=== PATIENT | male | born 1935 | race Caucasian/White ===

== ENCOUNTER 2022-10-09 15:53 | Emergency (ER) | payer MEDICARE, BC ==
[~2022-10-09] VITALS: Ht 172.7 cm; Wt 85.6 kg
[2022-10-09 15:57] VITALS: BP 158/92; PULSE 76; RESP 16; TEMP 98; O2SAT 100
--- NOTE | 2022-10-09 16:28 | NUR ---
PT PRESENTS TO THE ER FOR MECHANICAL FALL, PT DENIES HEAD PAIN. PT DENIES LOC, OR BLOOD THINNERS. PT REPORTS 0/10 PAIN.
== END 2022-10-09 17:30 | disposition home or self-care (01) ==
LOC: ER 15:55
DX: S01.81XA Laceration without foreign body of other part of head, initial encounter (principal); W19.XXXA Unspecified fall, initial encounter; Y93.89 Activity, other specified; Y92.89 Other specified places as the place of occurrence of the external cause; Y99.8 Other external cause status
CPT/HCPCS: 99283

== ENCOUNTER 2022-11-19 06:25 | Day surgery (SDC) | payer MEDICARE, BC ==
[~2022-11-19] VITALS: Ht 172.7 cm; Wt 85.5 kg
[2022-11-19] VITALS (9 sets, daily range): BP systolic 87–153; BP diastolic 43–72; PULSE 60–71; RESP 16; TEMP 97.9; O2SAT 93–98
[2022-11-19] MEDS ORDERED: cefazolin 2gm/D5W 100mL 100 ML IV ONE (06:51)
[2022-11-19] MEDS ORDERED: vancomycin 1,500 MG in NS 300ml IV soln IV ONE (06:52)
[2022-11-19] MEDS ORDERED: FERR-29 PO (07:21)
[2022-11-19] MEDS ORDERED: FOLI1TAB27 PO (07:21)
[2022-11-19] MEDS ORDERED: METO-395 PO (07:21)
[2022-11-19] MEDS ORDERED: ASPI81TA52 PO (07:21)
[2022-11-19] MEDS ORDERED: LOSA100T58 PO (07:21)
[2022-11-19] MEDS ORDERED: AMLO5TAB16 PO (07:21)
[2022-11-19] MEDS ORDERED: CARI-515 PO (07:21)
[2022-11-19 07:50] LABS: BASOPHILS # (AUTO) 0.1 X10'3 (0-0.2); EOSINOPHILS % (AUTO) 15.6 % (0-6); HEMATOCRIT 37.4 % (42.0-52.0); HEMOGLOBIN 12.6 g/dl (14.0-17.9); LYMPHOCYTES # (AUTO) 0.9 X10'3 (1.1-4.8); LYMPHOCYTES % (AUTO) 14.3 % (21-51); MEAN CORPUSCULAR HEMOGLOBIN 29.8 PG (27.0-31.0); MEAN CORPUSCULAR HGB CONC 33.8 g/dL (33.0-36.5); MEAN CORPUSCULAR VOLUME 88.2 FL (78-98); MEAN PLATELET VOLUME 6.4 FL (7.4-10.4); MONOCYTES # (AUTO) 0.7 X10'3 (0-0.9); MONOCYTES % (AUTO) 10.9 % (2-12); NEUTROPHILS # (AUTO) 3.7 X10'3 (1.8-7.7); NEUTROPHILS % (AUTO) 58.2 % (42-75); PLATELET COUNT 323 X10'3 (140-440); RED BLOOD COUNT 4.24 X10'6 (4.70-6.10); RED CELL DISTRIBUTION WIDTH 15.1 % (11.5-14.5); WHITE BLOOD COUNT 6.3 X10'3 (4.5-11.0)
[2022-11-19] MEDS ORDERED: normal saline 1000ml 1,000 ML IV SCH (07:55)
[2022-11-19 08:01] LABS: PROTHROMBIN TIME 9.8 SECONDS (9.0-12.0)
[2022-11-19 08:07] LABS: INR 0.9 INR
[2022-11-19 08:22] LABS: ALBUMIN 4.5 G/DL (3.4-5.0); ANION GAP 8 (8-16); BLOOD UREA NITROGEN 13 MG/DL (7-18); BUN/CREATININE RATIO 15.1 (10.0-20.0); CALCIUM 10.5 MG/DL (8.5-10.1); CHLORIDE 93 MMOL/L (99-107); CREATININE 0.86 MG/DL (0.60-1.10); GLUCOSE 99 MG/DL (70-104); MAGNESIUM 2.2 MG/DL (1.5-2.4); POTASSIUM 4.6 MMOL/L (3.5-5.1); SODIUM 129 MMOL/L (135-145); TOTAL CARBON DIOXIDE 27.8 MMOL/L (24-32); eCRCL 61 ML/MIN; eGFR 85 ML/MIN
[2022-11-19] MEDS ORDERED: midazolam 1 mg/ML 2ml injection ONE ×4 (09:21→10:50)
[2022-11-19] MEDS ORDERED: iohexol 350 MG/ML 50ML vial IV ONE (09:21)
[2022-11-19] MEDS ORDERED: LIDOCAINE 2%/EPI 1:100,000 inj. Multi-dose 20 ML VIAL ONE (09:21)
[2022-11-19] MEDS ORDERED: vancomycin 1,000mg inj ONE (09:21)
[2022-11-19] MEDS ORDERED: fentaNYL/PF 50MCG/1 ML 2ML syringe ONE (09:21)
[2022-11-19] MEDS ORDERED: proCHLORperazine 10 MG/2 ml inj ONE (10:16)
== END 2022-11-19 13:50 | disposition home or self-care (01) ==
LOC: SSTAY O 06:25
PROVIDERS: ATTEND Internal Medicine Cardiovascular Disease
DX: T82.190A Other mechanical complication of cardiac electrode, initial encounter (principal); I48.91 Unspecified atrial fibrillation; I49.5 Sick sinus syndrome; I10 Essential (primary) hypertension; D50.9 Iron deficiency anemia, unspecified; I25.118 Atherosclerotic heart disease of native coronary artery with other forms of angina pectoris; I44.1 Atrioventricular block, second degree; I34.0 Nonrheumatic mitral (valve) insufficiency; M19.90 Unspecified osteoarthritis, unspecified site; Z87.11 Personal history of peptic ulcer disease; Z79.82 Long term (current) use of aspirin; Z79.899 Other long term (current) drug therapy; Z90.49 Acquired absence of other specified parts of digestive tract; Z95.0 Presence of cardiac pacemaker; Z98.49 Cataract extraction status, unspecified eye; Z98.890 Other specified postprocedural states; Z98.1 Arthrodesis status; Z87.891 Personal history of nicotine dependence; Z80.1 Family history of malignant neoplasm of trachea, bronchus and lung; Z82.49 Family history of ischemic heart disease and other diseases of the circulatory system; Y83.8 Other surgical procedures as the cause of abnormal reaction of the patient, or of later complication, without mention of misadventure at the time of the procedure; Y92.89 Other specified places as the place of occurrence of the external cause
CPT/HCPCS: 33217; 33235; 36415; 71045; 80048; 83735; 85025; 85610; 92960; 93005; 99152; 99153; C1898; J0780; J2250; J3010; J3370; J7030; Q9967; 33208; 33216; A4565